=== PATIENT | female | born 1985 | race American Indian/Alaskan Native ===

== ENCOUNTER 2017-10-16 12:24 | Emergency (ER) | payer SELFPAY ==
[2017-10-16 12:33] VITALS: BP 128/78
[2017-10-16 13:12] LABS: Bacteria,Urine 1+ /HPF (Negative); Bilirubin,Urine NEG (Negative); Blood,Urine SM (Negative); Color,Urine Yellow (Yellow); Mucus,Urine FEW /HPF; Protein,Urine <15 mg/dL mg/dL (Negative); Urobilinogen,Urine < 2.0 mg/dL (<2.0)
[2017-10-16 13:15] LABS: HCG Qualitative,Urine Negative (Negative)
--- NOTE | 2017-10-16 13:27 | Emergency Department Report ---
Chief Complaint: Nausea/Vomiting/Diarrhea Stated Complaint: NAUSEA/POSSIBLE Time Seen by Provider: 10/16/17 13:18 - HPI History of Present Illness: 32-year-old female presents to the emergency department with a complaint of a two-week history of nausea, worse in the morning, some breast tenderness, diarrhea and some bloating. The patient had concern that she might be despite the fact that she had a tubal ligation done in the past. She has taken home tests that have been negative. She denies any vaginal bleeding, dysuria or vaginal discharge. No obvious fever but sometimes she feels like she goes between hot and cold flashes. She does not have a current primary care physician. - ROS Review of Systems: Positive for breast tenderness, bloating, nausea without vomiting, diarrhea Negative for chest pain, shortness of breath, vaginal bleeding or discharge, dysuria - Exam Vital Signs: Vital Signs 10/16/17 12:28 Temperature 98.6 F Pulse Rate 87 Respiratory 16 Rate Blood Pressure 128/78 O2 Sat by Pulse 100 Oximetry Physical Exam: Heart and lungs sounds are normal auscultation. No abdominal tenderness to palpation. She does not appear in any acute distress. MSE screening note: Focused history and physical exam performed. Due to findings the following was ordered: Patient's urinalysis shows a possible mild urinary tract infection but the patient is not . She will have a 2 view x-ray of the abdomen and if negative will be discharged home with nausea medication and a primary care referral. ED Disposition for MSE Condition: Stable Referrals: PRIMARY CARE, [Primary Care Provider] - 3-5 Days
--- NOTE | 2017-10-16 13:55 | Emergency Department Report ---
HPI - General Chief Complaint: Nausea/Vomiting/Diarrhea Time Seen by Provider: 10/16/17 13:18 - HPI HPI: 32-year-old female presents to the emergency department with a complaint of a two-week history of nausea, worse in the morning, some breast tenderness, diarrhea and some bloating. The patient had concern that she might be despite the fact that she had a tubal ligation done in the past. She has taken home tests that have been negative. She denies any vaginal bleeding, dysuria or vaginal discharge. No obvious fever but sometimes she feels like she goes between hot and cold flashes. She does not have a current primary care physician. ED Past Medical Hx - Past Medical History Previous Medical History?: No Additional medical history: chronic neck pain - Surgical History Additional Surgical History: tubiligation 2012 - Social History Smoking Status: Current Every Day Smoker Substance Use Type: None - Medications Home Medications: Home Medications Medication Instructions Recorded Confirmed Last Taken Type Nitrofurantoin Monohyd/M-Cryst 100 mg PO BID #14 capsule 10/16/17 Unknown Rx [Macrobid 100 mg Capsule] Ondansetron [Zofran Odt] 4 mg PO Q8HR PRN #10 tab.rapdis 10/16/17 Unknown Rx ED Review of Systems ROS: Stated complaint: NAUSEA/POSSIBLE Other details as noted in HPI Comment: All other systems reviewed and negative Constitutional: chills. denies: malaise Eyes: denies: eye pain, eye discharge, vision change ENT: denies: ear pain, throat pain Respiratory: denies: cough, shortness of breath, wheezing Cardiovascular: denies: chest pain, palpitations Gastrointestinal: nausea. denies: vomiting Genitourinary: denies: dysuria, discharge Musculoskeletal: denies: back pain, joint swelling, arthralgia Skin: denies: rash, lesions Neurological: denies: headache, weakness, paresthesias Physical Exam - Physical Exam Vital Signs: Vital Signs 10/16/17 12:28 Temperature 98.6 F Pulse Rate 87 Respiratory 16 Rate Blood Pressure 128/78 O2 Sat by Pulse 100 Oximetry Physical Exam: GENERAL: The patient is well-developed well-nourished. HENT: Normocephalic. Atraumatic. Patient has moist mucous membranes. EYES: Extraocular motions are intact. NECK: Supple. Trachea is midline. CHEST/LUNGS: Clear to auscultation. There is no respiratory distress noted. HEART/CARDIOVASCULAR: Regular. There is no tachycardia. There is no murmur. ABDOMEN: Abdomen is soft, nontender. Patient has normal bowel sounds. SKIN: Skin is warm and dry. NEURO: The patient is awake, alert, and oriented. The patient is cooperative. The patient has no focal neurologic deficits. The patient has normal speech. MUSCULOSKELETAL: There is no tenderness or deformity. There is no limitation range of motion. There is no evidence of acute injury. ED Course Vital Signs 10/16/17 12:28 Temperature 98.6 F Pulse Rate 87 Respiratory 16 Rate Blood Pressure 128/78 O2 Sat by Pulse 100 Oximetry ED Medical Decision Making - Radiology Data Radiology results: image reviewed interpreted by me: Abdominal x-ray shows nonspecific nonobstructive bowel gas. - Medical Decision Making Patient came in with concern that she might be despite the fact that she had a tubal ligation. She had negative tests at home and a negative urine test here as well. Urinalysis showed a very mild urinary tract infection that will be treated with Macrobid. Abdominal x-ray shows nonspecific nonobstructive bowel gas. Vital signs stable including being afebrile. She will also be given some Zofran for nausea. She has been given multiple referrals for primary care doctors and has been encouraged to return to the emergency Department with any worsening of her symptoms or any acute distress. - Differential Diagnosis , gastroenteritis, food poisoning, GERD Critical Care Time: No Critical care attestation.: If time is entered above; I have spent that time in minutes in the direct care of this critically ill patient, excluding procedure time. ED Disposition Clinical Impression: Nausea without vomiting UTI (urinary tract infection) Qualifiers: Urinary tract infection type: acute cystitis Hematuria presence: without hematuria Qualified Code(s): N30.00 - Acute cystitis without hematuria Diarrhea Qualifiers: Diarrhea type: unspecified type Qualified Code(s): R19.7 - Diarrhea, unspecified Disposition: DC-01 TO HOME OR SELFCARE Is pt being admited?: No Condition: Stable Instructions: Urinary Tract Infection in Women (ED), Acute Nausea and Vomiting (ED), Acute Diarrhea (ED) Additional Instructions: Please follow up with a primary care physician in the next few days. Return to the emergency Department with any worsening of your symptoms or any acute distress. Prescriptions: Nitrofurantoin Monohyd/M-Cryst [Macrobid 100 mg Capsule] 100 mg PO BID #14 capsule Ondansetron [Zofran Odt] 4 mg PO Q8HR PRN #10 tab.rapdis PRN Reason: Nausea Referrals: PRIMARY CARE, [Primary Care Provider] - 3-5 Days MORA YANG MD [Staff Physician] - 3-5 Days ASHLYN BARKER MD [Staff Physician] - 3-5 Days [facility] [Outside] - 3-5 Days Time of Disposition: 13:52
--- NOTE | 2017-10-16 13:56 | XRay Report ---
ABDOMEN, 2 views: History: Abdominal pain. There is no evidence of free air beneath the diaphragms. The gas pattern within the abdomen is unremarkable. There is no evidence of bowel dilatation, significant air-fluid levels, or pathologic calcifications. Organ shadows are unremarkable. Bilateral tubal ligation clips are noted. IMPRESSION: Unremarkable abdomen.
== END 2017-10-16 14:21 | disposition home or self-care (01) ==
LOC: ED 12:24
DX: N30.00 Acute cystitis without hematuria (principal); R19.7 Diarrhea, unspecified; R11.0 Nausea; F17.200 Nicotine dependence, unspecified, uncomplicated; G89.29 Other chronic pain; Z98.51 Tubal ligation status
CPT/HCPCS: 74019; 81001; 81025